=== PATIENT | male | born 1990 | race Caucasian/White ===

== ENCOUNTER → 2017-02-26 | Outpatient (CLI) | payer BC ==
[~2017-02-26] MED LIST: AMLO10TA2 PO; CALC10009 PO; CATHETER FLUSH 10 ML SYR IV PRN; CLON0.1T PO; DIPH25CA79 PO; HYDR-3781 PO; LORA0.5T PO; METO-351 PO; MONT10TA24 PO; NIFE90TA33 PO; PANT40TA2 PO; PARO20TA5 PO; RANI150T11 PO; SUCR1TAB36 PO
--- NOTE | 2017-02-26 15:45 | Diagnostic Imaging Report ---
INDICATION: Right upper quadrant pain. COMPARISON: None. TECHNIQUE: Scintigraphic images were obtained following the intravenous administration of 5.07 mCi of technetium 99m labeled Choletec. Ejection fraction was calculated following the administration of a fatty meal. Region of interest was drawn around the gallbladder and a time/activity curve was generated. Discussion: Hepatic uptake and excretion are normal. There is normal appearance of activity within the gallbladder at 10 minutes and within the small bowel at 40 minutes. No retention activity seen within the common duct. Following the administration of a fatty meal, the gallbladder ejection fraction was calculated at 54%, normal. IMPRESSION: 1. Normal HIDA scan. 2. Normal gallbladder ejection fraction. 3. Patient reported no symptoms during the exam. Dictated by: Dictated on workstation # [id number]
== END ==
LOC: CARD 12:39
PROVIDERS: ATTEND Family Medicine
DX: R10.13 Epigastric pain (principal)
CPT/HCPCS: 78227

== ENCOUNTER → 2017-09-11 | Outpatient (CLI) | payer BC ==
[~2017-09-11] MED LIST changes: -CATHETER FLUSH 10 ML SYR IV PRN
== END ==
LOC: LAB 08:57
PROVIDERS: ATTEND Obstetrics & Gynecology
DX: N46.9 Male infertility, unspecified (principal)
CPT/HCPCS: 89320